=== PATIENT | male | born 1945 | race Caucasian/White ===

== ENCOUNTER 2022-08-22 10:03 | Emergency (ER) | payer OTHER | END 2022-08-22 11:45 | disposition home or self-care (01) | LOC: CSHERS 10:03 | DX: M54.50 Low back pain, unspecified (principal); M25.552 Pain in left hip; M25.511 Pain in right shoulder; I25.10 Atherosclerotic heart disease of native coronary artery without angina pectoris; E03.9 Hypothyroidism, unspecified; E78.5 Hyperlipidemia, unspecified; I10 Essential (primary) hypertension; F17.210 Nicotine dependence, cigarettes, uncomplicated | CPT/HCPCS: 72131; 72192 ==